=== PATIENT | female | born 1960 | race Caucasian/White ===

== ENCOUNTER → 2017-10-30 | Outpatient (CLI) | payer OTHER | END | disposition home or self-care (01) | LOC: CFH 14:34 | PROVIDERS: ATTEND Family Medicine | DX: J84.10 Pulmonary fibrosis, unspecified (principal) | CPT/HCPCS: 71046 ==

== ENCOUNTER → 2018-05-02 | Outpatient (CLI) | payer OTHER ==
[~2018-05-02] MED LIST: ALBU8.5H8 INH; ASPI-621 PO; CALC1CAP8 PO; CETI10TA24 PO; CLOT15CR5 TP; CYCL-259 PO; FENO160T PO; FLUC150T2 PO; FLUTICASONE NAS; KRILL OIL PO; LIDOCAINE PATCH TD; METH-356 PO; MULT-730 PO; POTASSIUM PO; PREG50CA PO; ROPI2TAB4 PO; SUMA100T4 PO; TOPI200T6 PO; [UNRECOGNIZED DRUG - OTHER] PO
== END | disposition home or self-care (01) ==
LOC: STAR 12:43
PROVIDERS: ATTEND Orthopaedic Surgery
DX: Z01.818 Encounter for other preprocedural examination (principal); M19.011 Primary osteoarthritis, right shoulder; R94.31 Abnormal electrocardiogram [ECG] [EKG]
CPT/HCPCS: 93005

== ENCOUNTER → 2018-05-08 | Outpatient (CLI) | payer OTHER | END | disposition home or self-care (01) | LOC: CFH 14:51 | PROVIDERS: ATTEND Pain Medicine Interventional Pain Medicine | DX: M16.0 Bilateral primary osteoarthritis of hip (principal) | CPT/HCPCS: 73523 ==

== ENCOUNTER 2021-03-21 18:46 | Inpatient (IN) | payer OTHER ==
[~2021-03-21] VITALS: Ht 162.6 cm; Wt 89.7 kg
[~2021-03-21 18:46] MED LIST changes: -ASPI-621 PO; +ASPI81TA45 PO; -CETI10TA24 PO; +CETI10TA76 PO; +CLOT15CR26 TP; -CLOT15CR5 TP; -CYCL-259 PO; +CYCL10TA2 PO; -METH-356 PO; +METH10TA2 PO; -ROPI2TAB4 PO; +ROPI2TAB8 PO
--- NOTE | 2021-03-21 19:11 | NUR ---
C/O SOB, AND COUGH X2 DAYS. PLACED ON VITALS MONITORS. FALL PRECAUTIONS IN PLACE.
[2021-03-21] MEDS ORDERED: IBUPROFEN 600 MG TABLET ONE (19:15)
[2021-03-21] MEDS ORDERED: ACETAMINOPHEN 500 MG TABLET ONE (19:15)
[2021-03-21] MEDS ORDERED: ACETAMINOPHEN 500 MG TABLET PO ONE (19:30)
[2021-03-21] MEDS ORDERED: SODIUM CHLORIDE 0.9% 1,000 ML IV ONE (19:30)
[2021-03-21] MEDS ORDERED: AZITHROMYCIN 500 MG in SODIUM CHLORIDE 0.9% 250 ML IV ONE (19:30)
[2021-03-21] MEDS ORDERED: IBUPROFEN 600 MG TABLET PO ONE (19:30)
[2021-03-21] MEDS ORDERED: CEFTRIAXONE 1,000 MG in DEXTROSE 5% 50 ML IVPB ONE (19:30)
[2021-03-21] MEDS ORDERED: SODIUM CHLORIDE 0.9% 1,000ML IVBOLUS ONE (19:30)
[2021-03-21 19:39] LABS: BASOPHILS % (AUTO) 0 % (0-1); EOSINOPHILS % (AUTO) 0 % (1-7); LYMPHOCYTES % (AUTO) 13 % (22-44); MEAN CORPUSCULAR HEMOGLOBIN 28.8 pg (27.0-34.8); MEAN CORPUSCULAR HGB CONC 33.7 g/dL (32.4-35.8); MEAN PLATELET VOLUME 7.7 fL (7.4-10.4); MONOCYTES % (AUTO) 9 % (2-9); NEUTROPHILS % (AUTO) 78 % (42-75); PLATELET COUNT 302 x10^3/uL (130-400); RED BLOOD COUNT 4.81 x10^6/uL (3.82-5.3); RED CELL DISTRIBUTION WIDTH 13.9 % (9.6-15.2)
[2021-03-21 19:49] LABS: CHLORIDE 107 mmol/L (98-107)
[2021-03-21 19:55] LABS: ALANINE AMINOTRANSFERASE 28 U/L (12-78); ALBUMIN 3.2 g/dL (3.4-5.0); ALKALINE PHOSPHATASE 66 U/L (45-117); ANION GAP 10 mmol/L (5-15); BILIRUBIN,TOTAL 0.5 mg/dL (0.2-1.0); CALCIUM 9.5 mg/dL (8.5-10.1); CREATININE 1.06 mg/dL (0.55-1.02); TOTAL PROTEIN 8.2 g/dL (6.4-8.2)
--- NOTE | 2021-03-21 20:01 | NUR ---
straigth cath without difficulty.
[2021-03-21 20:16] LABS: AMPHETAMINE SCREEN, URINE Negative (Negative); BARBITURATE SCREEN, URINE Negative (Negative); BENZODIAZEPINE SCREEN, URINE Negative (Negative); CANNABINOID SCREEN, URINE Negative (Negative); COCAINE SCREEN, URINE Negative (Negative); METHADONE SCREEN, URINE Positive (Negative); OPIATE SCREEN, URINE Negative (Negative)
[2021-03-21 20:17] LABS: MICROSCOPIC INDICATED
--- NOTE | 2021-03-21 20:33 | NUR ---
PT'S DAUGHTER MANNY QUILES PHONE [phone].
[2021-03-21] MEDS ORDERED: CYCL10TA2 PO ×2 (21:18)
[2021-03-21] MEDS ORDERED: CETI10CA PO (21:18)
[2021-03-21] MEDS ORDERED: ROPI12TA2 PO (21:18)
[2021-03-21] MEDS ORDERED: SUMA100T4 PO (21:18)
[2021-03-21] MEDS ORDERED: METH10TA3 PO (21:18)
[2021-03-21] MEDS ORDERED: ESTR0.5T PO (21:18)
[2021-03-21] MEDS ORDERED: PROG100C16 PO (21:18)
[2021-03-21] MEDS ORDERED: FENO160T PO (21:18)
[2021-03-21] MEDS ORDERED: LOSA25TA25 PO (21:18)
--- NOTE | 2021-03-21 21:22 | NUR ---
REPORT GIVEN TO TONIE JIMÉNEZ.
[2021-03-21 22:01] LABS: RAPID INFLUENZA A Negative (Negative); RAPID INFLUENZA B Negative (Negative)
[2021-03-21 22:05] VITALS: BP 99/66
[2021-03-21] MEDS ORDERED: ROPI2TAB8 PO (23:50)
[2021-03-22] MEDS: TOPIRAMATE 100 MG TABLET PO SCH ×2 (00:21→20:11)
[2021-03-22] MEDS: ROPINIROLE 1MG TABLET PO SCH ×2 (00:21→20:11)
[2021-03-22] MEDS: METHADONE 10 MG TABLET PO SCH ×4 (00:22→20:10)
[2021-03-22] MEDS: FENOFIBRATE 145 MG TABLET PO SCH ×2 (00:22→20:11)
[2021-03-22] MEDS: ESTRADIOL 0.5 MG TABLET PO SCH ×2 (00:22→20:10)
[2021-03-22 00:36] VITALS: BP 100/63
[2021-03-22] MEDS ORDERED: ZOLPIDEM 5MG TABLET PO PRN (01:00)
[2021-03-22] MEDS ORDERED: hydrALAzine 20 MG/ML, 1ML IVPush PRN (01:00)
[2021-03-22] MEDS ORDERED: VANCOMYCIN PER PHARMACY MC PRN (01:00)
[2021-03-22] MEDS ORDERED: OXYcodone IR 5MG TABLET PO PRN (01:00)
[2021-03-22] MEDS ORDERED: IBUPROFEN 600 MG TABLET PO PRN (01:00)
[2021-03-22] MEDS ORDERED: GUAIFENESIN/DM 200-20MG, 10ML UDC PO PRN (01:00)
[2021-03-22] MEDS ORDERED: ONDANSETRON 2MG/ML, 2ML IVPush PRN (01:00)
[2021-03-22] MEDS ORDERED: DOCUSATE 100 MG CAPSULE PO PRN (01:00)
[2021-03-22] MEDS ORDERED: ALBUTEROL HFA 90 MCG/SPRAY INH SCH (01:00)
[2021-03-22] MEDS: PIPERACILLIN/TAZO 3.375 GM in DEXTROSE 5% 50 ML IVPB SCH ×3 (01:23→16:55)
[2021-03-22] MEDS: SODIUM CHLORIDE 0.9% 1,000 ML IV SCH ×2 (01:23→14:21)
[2021-03-22] MEDS ORDERED: VANCOMYCIN 2,200 MG in SODIUM CHLORIDE 0.9% 500 ML IV ONE (01:30)
[2021-03-22] MEDS ORDERED: PHARMACOKINETIC MONITORING MC PRN (01:30)
[2021-03-22] MEDS: ENOXAPARIN 40 MG/0.4 ML SQ SCH (01:35)
[2021-03-22 05:28] LABS: BASOPHILS % (AUTO) 1 % (0-1); EOSINOPHILS % (AUTO) 1 % (1-7); LYMPHOCYTES % (AUTO) 20 % (22-44); MEAN CORPUSCULAR HEMOGLOBIN 28.9 pg (27.0-34.8); MEAN CORPUSCULAR HGB CONC 33.2 g/dL (32.4-35.8); MEAN PLATELET VOLUME 8.5 fL (7.4-10.4); MONOCYTES % (AUTO) 13 % (2-9); NEUTROPHILS % (AUTO) 65 % (42-75); PLATELET COUNT 258 x10^3/uL (130-400); RED BLOOD COUNT 4.39 x10^6/uL (3.82-5.3); RED CELL DISTRIBUTION WIDTH 14.1 % (9.6-15.2)
[2021-03-22 05:33] LABS: CHLORIDE 114 mmol/L (98-107)
[2021-03-22 05:40] LABS: ANION GAP 7 mmol/L (5-15); CALCIUM 8.6 mg/dL (8.5-10.1); CREATININE 0.77 mg/dL (0.55-1.02)
[2021-03-22 07:51] VITALS: BP 111/74
[2021-03-22] MEDS: CYCLOBENZAPRINE 10 MG TABLET PO SCH ×2 (08:44→20:11)
[2021-03-22] MEDS: MULTIVITAMINS/MINERALS TABLET PO SCH (08:44)
[2021-03-22] MEDS: PROGESTERONE 100 MG CAPSULE PO SCH (08:44)
[2021-03-22] MEDS: CALCIUM/VITAMIN D3 250-125 TABLET PO SCH (08:44)
[2021-03-22] MEDS: CETIRIZINE 10 MG TABLET PO SCH (08:45)
[2021-03-22] MEDS: LOSARTAN 25MG TABLET PO SCH (08:45)
[2021-03-22] MEDS: MULTIVITS,STRESS FORMULA 1 TABLET PO SCH (08:45)
[2021-03-22] MEDS ORDERED: [UNRECOGNIZED DRUG - OTHER] PO SCH (09:00)
[2021-03-22 13:03] VITALS: BP 125/79
[2021-03-22] MEDS: POTASSIUM CHLORIDE 20 MEQ TAB.ER.PRT PO SCH ×2 (15:21→16:02)
[2021-03-22] MEDS ORDERED: ASA/APAP/ CAFFEINE TABLET PO PRN (18:30)
[2021-03-22] MEDS ORDERED: SUMATRIPTAN 100 MG TABLET PO PRN (18:30)
[2021-03-22 19:17] VITALS: BP 97/65
[2021-03-22] MEDS ORDERED: AZITHROMYCIN 500 MG in SODIUM CHLORIDE 0.9% 250 ML IV SCH (19:30)
[2021-03-22] MEDS ORDERED: BENZONATATE 100 MG CAPSULE ONE (20:08)
[2021-03-22] MEDS: VANCOMYCIN 1,800 MG in SODIUM CHLORIDE 0.9% 250 ML IV SCH (20:10)
[2021-03-22] MEDS ORDERED: BENZONATATE 100 MG CAPSULE PO PRN (20:30)
[2021-03-23 00:16] VITALS: BP 108/73
[2021-03-23] MEDS: PIPERACILLIN/TAZO 3.375 GM in DEXTROSE 5% 50 ML IVPB SCH ×2 (01:16→09:06)
[2021-03-23] MEDS: ENOXAPARIN 40 MG/0.4 ML SQ SCH (01:16)
[2021-03-23 05:20] LABS: BASOPHILS % (AUTO) 0 % (0-1); EOSINOPHILS % (AUTO) 2 % (1-7); LYMPHOCYTES % (AUTO) 26 % (22-44); MEAN CORPUSCULAR HEMOGLOBIN 28.8 pg (27.0-34.8); MEAN CORPUSCULAR HGB CONC 33.4 g/dL (32.4-35.8); MEAN PLATELET VOLUME 8.4 fL (7.4-10.4); MONOCYTES % (AUTO) 13 % (2-9); NEUTROPHILS % (AUTO) 58 % (42-75); PLATELET COUNT 232 x10^3/uL (130-400); RED BLOOD COUNT 4.11 x10^6/uL (3.82-5.3); RED CELL DISTRIBUTION WIDTH 14.6 % (9.6-15.2)
[2021-03-23 05:29] LABS: ANION GAP 8 mmol/L (5-15); CALCIUM 8.4 mg/dL (8.5-10.1); CHLORIDE 112 mmol/L (98-107)
[2021-03-23 05:31] LABS: CREATININE 1.08 mg/dL (0.55-1.02)
[2021-03-23 07:31] VITALS: BP 116/66
[2021-03-23] MEDS: SODIUM CHLORIDE 0.9% 1,000 ML IV SCH (09:05)
[2021-03-23] MEDS: CALCIUM/VITAMIN D3 250-125 TABLET PO SCH (09:06)
[2021-03-23] MEDS: MULTIVITS,STRESS FORMULA 1 TABLET PO SCH (09:07)
[2021-03-23] MEDS: PROGESTERONE 100 MG CAPSULE PO SCH (09:07)
[2021-03-23] MEDS: CYCLOBENZAPRINE 10 MG TABLET PO SCH (09:07)
[2021-03-23] MEDS: MULTIVITAMINS/MINERALS TABLET PO SCH (09:07)
[2021-03-23] MEDS: LOSARTAN 25MG TABLET PO SCH (09:07)
[2021-03-23] MEDS: METHADONE 10 MG TABLET PO SCH (09:07)
[2021-03-23] MEDS: CETIRIZINE 10 MG TABLET PO SCH (09:07)
[2021-03-23] MEDS ORDERED: AMOX1TAB64 PO (11:50)
[2021-03-23] MEDS ORDERED: DOXY100C2 PO (11:50)
[2021-03-23 13:17] VITALS: BP 126/82
[2021-03-23] MEDS: VANCOMYCIN 1,800 MG in SODIUM CHLORIDE 0.9% 250 ML IV SCH (14:06)
== END 2021-03-23 14:31 | disposition home or self-care (01) | DRG 871 ==
LOC: ED 19:16 → EDIP 21:56 → 4WST 22:02 → DCLOUNGE 03-23 14:12
PROVIDERS: ADMIT Internal Medicine; ATTEND Internal Medicine
PROC: 0T9B30Z Drainage of Bladder with Drainage Device, Percutaneous Approach (ICD-10-PCS; principal; 2021-03-21)
DX: A41.9 Sepsis, unspecified organism (principal); G93.41 Metabolic encephalopathy; J15.9 Unspecified bacterial pneumonia; J96.01 Acute respiratory failure with hypoxia; N17.9 Acute kidney failure, unspecified; Z20.822 Contact with and (suspected) exposure to COVID-19; E66.9 Obesity, unspecified; E78.5 Hyperlipidemia, unspecified; E87.6 Hypokalemia; G25.81 Restless legs syndrome; G43.909 Migraine, unspecified, not intractable, without status migrainosus; G89.29 Other chronic pain; I10 Essential (primary) hypertension; R65.20 Severe sepsis without septic shock; Z82.5 Family history of asthma and other chronic lower respiratory diseases; Z87.442 Personal history of urinary calculi; Z68.33 Body mass index [BMI] 33.0-33.9, adult; Z79.899 Other long term (current) drug therapy; Z79.891 Long term (current) use of opiate analgesic; Z79.01 Long term (current) use of anticoagulants
CPT/HCPCS: 36415; 71045; 80048; 80053; 80307; 81001; 83605; 83735; 84100; 84145; 85025; 87040; 87400; 93005; 96365; G0378; J0456; J0696; J1650; J2543; J3370; U0005; J7030; J7040; J7050; U0003